=== PATIENT | female | born 1955 | race Caucasian/White ===

== ENCOUNTER 2021-07-24 05:17 | Emergency (ER) | payer OTHER ==
[2021-07-24] MEDS ORDERED: KEFLEX250 MG PO (06:05)
[2021-07-25] MEDS ORDERED: VIBRAMYCIN100 MG PO (00:09)
[2021-07-25] MEDS ORDERED: BACTRIM DS TAB1 EAC1 PO (00:09)
[2021-07-25] MEDS ORDERED: CRESTOR5 MG PO (10:58)
[2021-07-25] MEDS ORDERED: LEVOTHYROXINE75 MC2 PO (11:07)
[2021-07-25] MEDS ORDERED: CYMBALTA60 MG PO (11:08)
[2021-07-25] MEDS ORDERED: ELAVIL50 MG PO (11:08)
[2021-07-25] MEDS ORDERED: PROTONIX 40MG T40 MG PO (11:09)
[2021-07-25] MEDS ORDERED: MOBIC7.5 MG PO (11:09)
[2021-07-25] MEDS ORDERED: METFORMIN HCL500 MG PO (11:10)
[2021-07-25] MEDS ORDERED: LIPITOR 10MG TA10 MG PO (11:10)
== END 2021-07-24 06:28 | disposition home or self-care (01) ==
LOC: FER 05:17
DX: S61.215A Laceration without foreign body of left ring finger without damage to nail, initial encounter (principal); I10 Essential (primary) hypertension; E11.9 Type 2 diabetes mellitus without complications; W25.XXXA Contact with sharp glass, initial encounter; Y92.009 Unspecified place in unspecified non-institutional (private) residence as the place of occurrence of the external cause
CPT/HCPCS: 99283

== ENCOUNTER 2021-07-24 20:52 | Day surgery (SDCO) | payer OTHER ==
[~2021-07-24] VITALS: Ht 162.6 cm; Wt 84.1 kg
[~2021-07-24 20:52] MED LIST: KEFLEX250 MG PO
[2021-07-24 22:56] LABS: BASOPHIL 0.6 % (0-2); EOSINOPHIL 2.9 % (0-7); HCT 38.2 % (37.0-47.0); HGB 12.5 g/dl (12.5-16.0); LYMPHOCYTE 27.9 % (15-48); MCH 31.1 pg (25.0-31.0); MCHC 32.7 g/dL (32.0-36.0); NEUTROPHIL 60.4 % (41-80); NRBC 0; PLT 212 K/uL (150-400); RBC 4.02 M/uL (4.20-5.40); RDW 12.6 % (11.5-14.0); WBC 9.8 K/uL (4.0-10.5)
[2021-07-24 23:14] LABS: ALBUMIN 3.7 g/dL (3.4-5.0); BILIRUBIN - TOTAL 0.7 mg/dL (0.2-1.0); BUN/CREAT RATIO (CALC) 15.2 RATIO; C-REACTIVE PROTEIN 0.8 mg/dL (<=0.90); CREATININE 0.79 mg/dL (0.51-0.95); GLOBULIN (CALCULATION) 3.2 g/dL; POTASSIUM 3.9 mmol/L (3.5-5.1); TOTAL PROTEIN 6.9 g/dL (6.4-8.2)
[2021-07-25] MEDS ORDERED: VIBRAMYCIN100 MG PO (00:09)
[2021-07-25] MEDS ORDERED: BACTRIM DS TAB1 EAC1 PO (00:09)
[2021-07-25] MEDS ORDERED: CRESTOR5 MG PO (10:58)
[2021-07-25] MEDS ORDERED: LEVOTHYROXINE75 MC2 PO (11:07)
[2021-07-25] MEDS ORDERED: CYMBALTA60 MG PO (11:08)
[2021-07-25] MEDS ORDERED: ELAVIL50 MG PO (11:08)
[2021-07-25] MEDS ORDERED: MOBIC7.5 MG PO (11:09)
[2021-07-25] MEDS ORDERED: PROTONIX 40MG T40 MG PO (11:09)
[2021-07-25] MEDS ORDERED: LIPITOR 10MG TA10 MG PO (11:10)
[2021-07-25] MEDS ORDERED: METFORMIN HCL500 MG PO (11:10)
[2021-07-26 06:15] LABS: BASOPHIL 0.8 % (0-2); EOSINOPHIL 4.2 % (0-7); HCT 40.8 % (37.0-47.0); HGB 13.2 g/dl (12.5-16.0); MCH 31.7 pg (25.0-31.0); MCHC 32.4 g/dL (32.0-36.0); MCV 98.1 fL (78.0-100.0); MONOCYTE 9.6 % (0-12); MPV 9.8 fL (6.0-9.5); NEUTROPHIL 51.2 % (41-80); NRBC 0; PLT 192 K/uL (150-400); RBC 4.16 M/uL (4.20-5.40); RDW 12.5 % (11.5-14.0); WBC 6.2 K/uL (4.0-10.5)
[2021-07-26 06:36] LABS: BUN/CREAT RATIO (CALC) 11.3 RATIO; CREATININE 0.71 mg/dL (0.51-0.95); POTASSIUM 3.8 mmol/L (3.5-5.1)
[2021-07-26] MEDS ORDERED: FLORANEX TABLE1 EACH PO (07:52)
[2021-07-26] MEDS ORDERED: AUGMENTIN 500-1 EACH PO (07:52)
--- NOTE | 2021-07-27 09:27 | NUR ---
PATIENT WAS DISCHARGED FROM HOSPITAL BEFORE BEING SEEN BY WOUND CARE.
== END 2021-07-26 08:35 | disposition home or self-care (01) ==
LOC: FER 20:52 → FMS 07-25 00:33
PROVIDERS: Emergency Medicine; Hospitalist; ADMIT Internal Medicine
DX: L03.012 Cellulitis of left finger (principal); R73.03 Prediabetes; I12.9 Hypertensive chronic kidney disease with stage 1 through stage 4 chronic kidney disease, or unspecified chronic kidney disease; N18.2 Chronic kidney disease, stage 2 (mild); S61.215A Laceration without foreign body of left ring finger without damage to nail, initial encounter; R73.9 Hyperglycemia, unspecified; F32.A Depression, unspecified; E03.9 Hypothyroidism, unspecified; G47.00 Insomnia, unspecified; E78.5 Hyperlipidemia, unspecified; F41.9 Anxiety disorder, unspecified; Z88.8 Allergy status to other drugs, medicaments and biological substances; Z79.84 Long term (current) use of oral hypoglycemic drugs; Z79.899 Other long term (current) drug therapy; W25.XXXA Contact with sharp glass, initial encounter
CPT/HCPCS: 36415; 73130; 73201; 80048; 80053; 83036; 83605; 83735; 85025; 86140; G0378; J0692; J1650; J2185; J2270; J3370; J7030; J7040; J7050; Q9967